=== PATIENT | female | born 1950 ===

== ENCOUNTER 2019-06-19 23:55 | Inpatient (IN) | payer OTHER ==
[~2019-06-19] VITALS: Ht 177.8 cm; Wt 109.0 kg
[2019-06-20] VITALS (18 sets, daily range): BP systolic 87–136; BP diastolic 49–71
[2019-06-20 01:18] LABS: CALCIUM 9.1 mg/dL (8.5-10.1); CARBON DIOXIDE 38.1 mmol/L (21-32); CHLORIDE SERUM 100 mmol/L (98-107); CREATININE SERUM 1.2 mg/dL (0.6-1.0); GLUCOSE SERUM 222 mg/dL (74-106); SODIUM SERUM 142 mmol/L (136-145)
[2019-06-20 01:21] LABS: BASOPHIL % 0.1 % (0-2); PLATELET COUNT 303 x10^3mcL (130-400)
[2019-06-20 01:22] LABS: ALKALINE PHOSPHATASE 113 U/L (46-116); ALT/SGPT 45 U/L (14-59); AST/SGOT 38 U/L (15-37); BILIRUBIN TOTAL 0.17 mg/dL (0.20-1.00); TOTAL PROTEIN, SERUM 6.3 g/dL (6.4-8.2)
[2019-06-20 01:31] LABS: ALBUMIN 2.9 g/dL (3.4-5.0)
[2019-06-20 01:53] LABS: CHOLESTEROL/HDL RATIO 3.1
[2019-06-20 02:00] LABS: FREE T4 0.89 ng/dL (0.76-1.46); FREE THYROXINE INDEX 1.9 ug/dL (1.4-4.5); T4(THYROXINE) 4.8 ug/dL (4.7-13.3)
[2019-06-20 02:16] LABS: T3 TOTAL 0.49 ng/mL
[2019-06-20 04:05] LABS: microscopic required? YES; urine erythrocyte 3+ (NEGATIVE)
[2019-06-20 04:15] LABS: AMPHETAMINE QUAL UR NONE DETECTED (See below)
[2019-06-20 07:58] LABS: PLATELET COUNT 276 x10^3mcL (130-400)
[2019-06-20 08:02] LABS: BASOPHIL % 0 % (0-2); RED CELL DISTRIBUTION WIDTH 17.7 % (11.5-14.5)
[2019-06-20 08:24] LABS: CARBON DIOXIDE 36.8 mmol/L (21-32); CHLORIDE SERUM 97 mmol/L (98-107); CREATININE SERUM 1.4 mg/dL (0.6-1.0); GLUCOSE SERUM 345 mg/dL (74-106); MAGNESIUM 2.3 mg/dL (1.8-2.4); PHOSPHOROUS 3.8 mg/dL (2.5-4.9); POTASSIUM SERUM 4.4 mmol/L (3.5-5.1); SODIUM SERUM 140 mmol/L (136-145)
[2019-06-21] VITALS (18 sets, daily range): BP systolic 144–164; BP diastolic 60–97
[2019-06-21 05:33] LABS: BASOPHIL % 0.1 % (0-2); PLATELET COUNT 251 x10^3mcL (130-400)
[2019-06-21 05:35] LABS: RED CELL DISTRIBUTION WIDTH 17.5 % (11.5-14.5)
[2019-06-21 05:47] LABS: CALCIUM 9.2 mg/dL (8.5-10.1); CHLORIDE SERUM 101 mmol/L (98-107); CREATININE SERUM 1.1 mg/dL (0.6-1.0); GLUCOSE SERUM 281 mg/dL (74-106); PHOSPHOROUS 2.4 mg/dL (2.5-4.9); POTASSIUM SERUM 4.2 mmol/L (3.5-5.1); SODIUM SERUM 142 mmol/L (136-145)
[2019-06-21 06:01] LABS: CARBON DIOXIDE 42.2 mmol/L (21-32)
[2019-06-22] VITALS (19 sets, daily range): BP systolic 104–150; BP diastolic 62–84
[2019-06-22 05:07] LABS: BASOPHIL % 0.4 % (0-2); PLATELET COUNT 261 x10^3mcL (130-400)
[2019-06-22 05:10] LABS: CHLORIDE SERUM 98 mmol/L (98-107); CREATININE SERUM 1.1 mg/dL (0.6-1.0); GLUCOSE SERUM 237 mg/dL (74-106); MAGNESIUM 2.1 mg/dL (1.8-2.4); PHOSPHOROUS 2.8 mg/dL (2.5-4.9); POTASSIUM SERUM 4.2 mmol/L (3.5-5.1); SODIUM SERUM 141 mmol/L (136-145)
[2019-06-22 05:11] LABS: RED CELL DISTRIBUTION WIDTH 17.5 % (11.5-14.5)
[2019-06-22 05:14] LABS: CARBON DIOXIDE 44.1 mmol/L (21-32)
[2019-06-23] VITALS (17 sets, daily range): BP systolic 129–159; BP diastolic 53–77
[2019-06-23 05:13] LABS: BASOPHIL % 0.1 % (0-2); PLATELET COUNT 259 x10^3mcL (130-400)
[2019-06-23 05:15] LABS: RED CELL DISTRIBUTION WIDTH 17.5 % (11.5-14.5)
[2019-06-23 05:19] LABS: CALCIUM 8.5 mg/dL (8.5-10.1); CHLORIDE SERUM 94 mmol/L (98-107); CREATININE SERUM 1.2 mg/dL (0.6-1.0); GLUCOSE SERUM 287 mg/dL (74-106); PHOSPHOROUS 3.6 mg/dL (2.5-4.9); POTASSIUM SERUM 3.9 mmol/L (3.5-5.1); SODIUM SERUM 135 mmol/L (136-145)
[2019-06-23 05:21] LABS: CARBON DIOXIDE 40.7 mmol/L (21-32)
[2019-06-24] VITALS (14 sets, daily range): BP systolic 137–172; BP diastolic 56–74; Ht 177.8 cm; Wt 109.0 kg
[2019-06-24 05:43] LABS: PLATELET COUNT 235 x10^3mcL (130-400)
[2019-06-24 05:45] LABS: BASOPHIL % 0 % (0-2); RED CELL DISTRIBUTION WIDTH 17.1 % (11.5-14.5)
[2019-06-24 05:50] LABS: CALCIUM 8.6 mg/dL (8.5-10.1); CARBON DIOXIDE 39.9 mmol/L (21-32); CHLORIDE SERUM 97 mmol/L (98-107); CREATININE SERUM 1.2 mg/dL (0.6-1.0); GLUCOSE SERUM 295 mg/dL (74-106); PHOSPHOROUS 3.8 mg/dL (2.5-4.9); POTASSIUM SERUM 3.9 mmol/L (3.5-5.1); SODIUM SERUM 137 mmol/L (136-145)
[2019-06-25 05:32] LABS: PLATELET COUNT 246 x10^3mcL (130-400)
[2019-06-25 05:43] LABS: RED CELL DISTRIBUTION WIDTH 16.7 % (11.5-14.5)
[2019-06-25 06:02] LABS: BAND NEUTROPHIL 4 % (0-10); BASOPHIL 0 % (0-2); MONOCYTE 3 % (0-7); PLATELET MORPHOLOGY PLATELETS NORMAL; SEGMENTED NEUTROPHILS 89 % (37-75); rbc morphology (normal/abnorm) NORMAL (NORMAL)
[2019-06-25 06:03] VITALS: BP 151/89
[2019-06-25 06:12] LABS: CALCIUM 8.5 mg/dL (8.5-10.1); CARBON DIOXIDE 38.4 mmol/L (21-32); CHLORIDE SERUM 96 mmol/L (98-107); GLUCOSE SERUM 174 mg/dL (74-106); PHOSPHOROUS 3.9 mg/dL (2.5-4.9); POTASSIUM SERUM 3.5 mmol/L (3.5-5.1); SODIUM SERUM 138 mmol/L (136-145)
[2019-06-25 07:30] VITALS: BP 154/121
[2019-06-25 11:20] VITALS: BP 125/78
[2019-06-25 15:00] VITALS: BP 116/65
[2019-06-25 19:25] VITALS: BP 100/41
[2019-06-25 23:06] VITALS: BP 119/65
[2019-06-26 03:01] VITALS: BP 129/74
[2019-06-26 05:55] LABS: PLATELET COUNT 284 x10^3mcL (130-400)
[2019-06-26 06:02] LABS: RED CELL DISTRIBUTION WIDTH 16.9 % (11.5-14.5)
[2019-06-26 06:13] LABS: BAND NEUTROPHIL 2 % (0-10); MONOCYTE 5 % (0-7); SEGMENTED NEUTROPHILS 88 % (37-75)
[2019-06-26 06:15] LABS: PLATELET MORPHOLOGY PLATELETS NORMAL; rbc morphology (normal/abnorm) ABNORMAL (NORMAL)
[2019-06-26 06:26] LABS: CHLORIDE SERUM 91 mmol/L (98-107); CREATININE SERUM 1.4 mg/dL (0.6-1.0); GLUCOSE SERUM 235 mg/dL (74-106); PHOSPHOROUS 3.2 mg/dL (2.5-4.9); SODIUM SERUM 138 mmol/L (136-145)
[2019-06-26 06:50] LABS: POTASSIUM SERUM 2.9 mmol/L (3.5-5.1)
[2019-06-26 07:15] VITALS: BP 130/63
[2019-06-26 11:25] LABS: microscopic required? YES; urine erythrocyte 3+ (NEGATIVE)
[2019-06-26 16:21] VITALS: BP 133/74
[2019-06-26 19:14] VITALS: BP 115/76
[2019-06-27 05:00] VITALS: BP 130/76
[2019-06-27 06:48] LABS: PLATELET COUNT 221 x10^3mcL (130-400)
[2019-06-27 07:05] LABS: BASOPHIL % 0 % (0-2); RED CELL DISTRIBUTION WIDTH 17.3 % (11.5-14.5)
[2019-06-27 07:13] LABS: CALCIUM 8.5 mg/dL (8.5-10.1); CARBON DIOXIDE 39.5 mmol/L (21-32); CHLORIDE SERUM 90 mmol/L (98-107); CREATININE SERUM 1.1 mg/dL (0.6-1.0); GLUCOSE SERUM 209 mg/dL (74-106); MAGNESIUM 2.2 mg/dL (1.8-2.4); PHOSPHOROUS 3.7 mg/dL (2.5-4.9); POTASSIUM SERUM 3.4 mmol/L (3.5-5.1); SODIUM SERUM 129 mmol/L (136-145)
[2019-06-27 08:53] VITALS: BP 118/43
[2019-06-27 12:14] VITALS: BP 129/60
[2019-06-27 16:37] VITALS: BP 114/58
[2019-06-27 16:43] VITALS: BP 111/56
[2019-06-27 21:00] VITALS: BP 122/72
[2019-06-28 05:48] VITALS: BP 126/64
[2019-06-28 06:42] LABS: PLATELET COUNT 239 x10^3mcL (130-400)
[2019-06-28 06:51] LABS: CARBON DIOXIDE 39.1 mmol/L (21-32); CHLORIDE SERUM 97 mmol/L (98-107); CREATININE SERUM 0.9 mg/dL (0.6-1.0); GLUCOSE SERUM 166 mg/dL (74-106); MAGNESIUM 2.3 mg/dL (1.8-2.4); PHOSPHOROUS 3.7 mg/dL (2.5-4.9); POTASSIUM SERUM 4.1 mmol/L (3.5-5.1); SODIUM SERUM 139 mmol/L (136-145)
[2019-06-28 07:08] LABS: BASOPHIL % 0 % (0-2); RED CELL DISTRIBUTION WIDTH 17.2 % (11.5-14.5)
[2019-06-28 08:30] VITALS: BP 99/66
[2019-06-28 12:00] VITALS: BP 128/51; BP 131/83
[2019-06-28 17:20] VITALS: BP 125/46
[2019-06-28] MEDS ORDERED: CARCD120 PO (17:49)
[2019-06-28] MEDS ORDERED: BG FS (17:49)
[2019-06-28] MEDS ORDERED: PRILOSEC OTC20 M1 PO (17:50)
[2019-06-28] MEDS ORDERED: LANTI SQ (17:50)
[2019-06-28] MEDS ORDERED: DELTASONE20 MG PO (17:52)
[2019-06-28] MEDS ORDERED: PRE20 PO (17:53)
[2019-06-28] MEDS ORDERED: LEVAQUIN500 M1 PO (17:53)
[2019-06-28 20:45] VITALS: BP 139/66
== END 2019-06-28 21:54 | disposition home health service (06) | DRG 207 ==
LOC: ED 23:55 → IC 06-20 01:14 → DU 06-26 11:12
PROVIDERS: Emergency Medicine; Family Medicine; ADMIT Internal Medicine
PROC: 5A1955Z Respiratory Ventilation, Greater than 96 Consecutive Hours (ICD-10-PCS; principal; 2019-06-20)
PROC: 0BH17EZ Insertion of Endotracheal Airway into Trachea, Via Natural or Artificial Opening (ICD-10-PCS; 2019-06-20)
PROC: 06HY33Z Insertion of Infusion Device into Lower Vein, Percutaneous Approach (ICD-10-PCS; 2019-06-20)
DX: J96.02 Acute respiratory failure with hypercapnia (principal); N17.0 Acute kidney failure with tubular necrosis; I50.33 Acute on chronic diastolic (congestive) heart failure; J44.1 Chronic obstructive pulmonary disease with (acute) exacerbation; E44.0 Moderate protein-calorie malnutrition; I13.0 Hypertensive heart and chronic kidney disease with heart failure and stage 1 through stage 4 chronic kidney disease, or unspecified chronic kidney disease; B37.0 Candidal stomatitis; E11.65 Type 2 diabetes mellitus with hyperglycemia; E11.22 Type 2 diabetes mellitus with diabetic chronic kidney disease; I48.91 Unspecified atrial fibrillation; N18.9 Chronic kidney disease, unspecified; E87.6 Hypokalemia; D63.1 Anemia in chronic kidney disease; Z68.35 Body mass index [BMI] 35.0-35.9, adult; Z79.84 Long term (current) use of oral hypoglycemic drugs; Z22.322 Carrier or suspected carrier of Methicillin resistant Staphylococcus aureus
CPT/HCPCS: 36600; 82962; 83880; 84439; 87046; 87046-59; 87804; 92526-GN; 92610-GN; 97116-GP; A4628; C9113; G0378; J0282; J0330; J0456; J0696; J1120; J1644; J1815; J1940; J1956; J2060; J2250; J2270; J2543; J2920; J2930; J3010; J3370; J3475; J3480; J3490; J7030; J7040; J7060; J7613; J7620; Q0092; Q0163